=== PATIENT | male | born 1965 | race Caucasian/White ===

== ENCOUNTER → 2018-08-10 | Outpatient (CLI) | payer BC, SELFPAY ==
--- NOTE | 2018-08-10 08:01 | RAD_ITS ---
STUDY: X-RAY CHEST REASON FOR EXAM: Male, 53 years old. History of left lower lobe pneumonia x2 as a child. Smoker x40 years. Recently quit. New diagnosis of rheumatoid arthritis. TECHNIQUE: PA and lateral views of the chest. COMPARISON: None. FINDINGS: The lungs are clear and expanded. There is no pleural effusion. There is no pneumothorax. Normal size heart. There is no demonstrated mediastinal lymphadenopathy or mediastinal mass lesion. Normal visualized pulmonary arteries. There is atherosclerotic calcification of the aortic arch with tortuosity. There are very mild diffuse degenerative changes of the visualized thoracic spine. There is no evident acute osseous abnormality. There is no demonstrated abnormality of the visualized soft tissue structures of the upper abdomen. RAD/Chest PA and Lateral IMPRESSION: There is no radiographically evident acute cardiopulmonary disease. Electronically Signed: Johnson Velasquez MD at 8:38 EDT , Service support ,
[2018-08-15 07:12] LABS: QNTFERON TB Mitogen Value > 10.00 IU/mL (.); QNTFERON TB Nil Value 0.02 IU/mL (.); QNTFERON TB1+ Ag Value 0.03 IU/mL (.); QNTFERON TB2+ Ag Value 0.04 IU/mL (.)
[2018-08-15 11:01] LABS: QNTIFERON TB Positive Criteria Negative (Negative)
== END | disposition home or self-care (01) ==
LOC: MTLAB 07:49
PROVIDERS: Family Provider Internal Medicine; PCP Internal Medicine; Referring Provider Internal Medicine Rheumatology; Visit Provider Internal Medicine Rheumatology
DX: M06.09 Rheumatoid arthritis without rheumatoid factor, multiple sites (principal); Z79.899 Other long term (current) drug therapy; M72.2 Plantar fascial fibromatosis; K21.9 Gastro-esophageal reflux disease without esophagitis; M51.37 Other intervertebral disc degeneration, lumbosacral region; M47.897 Other spondylosis, lumbosacral region; J44.9 Chronic obstructive pulmonary disease, unspecified; I10 Essential (primary) hypertension
CPT/HCPCS: 36415; 71046; 86480

== ENCOUNTER → 2018-10-26 | Outpatient (CLI) | payer BC, SELFPAY ==
[2018-10-26 17:18] LABS: Absolute Lymphocyte Count 1.94 X10^3/uL (0.83-4.51); Absolute Neutrophil Count 7.8 X10^3/uL (2.0-7.7); Basophil# 0.08 X10^3/uL; Basophil% 0.7 % (0-1); Eosinophil# 0.07 X10^3/uL; Eosinophils% 0.6 % (0-5); Hematocrit 41.4 % (40-54); Hemoglobin 13.7 g/dL (13.0-16.5); Lymphocyte # 1.94 X10^3/ul (4.0); Lymphocyte % 17.4 % (19-41); Mean Corp Hgb Conc 33.1 g/dL (32-36); Mean Corpuscular Hgb 31.2 pg (27.0-32.0); Mean Corpuscular Volume 94.3 fL (80-94); Mean Platelet Vol. 9.4 fl (6.2-12.0); Monocyte# 1.17 X10^3/uL; Monocyte% 10.5 % (0-10); NRBC Flagged by Analyzer 0 % (0-5); Neutrophil # 7.81 X10^3/uL (2.7-7.7); Neutrophil % 70.2 % (47-70); Platelet Count 321 K/mm3 (150-450); RBC Distribution Width CV 13.8 % (11.6-14.6); RBC Distribution Width SD 47.9 fl (35.1-43.9); Red Blood Count 4.39 M/mm3 (4.6-6.2); White Blood Count 11.1 K/mm3 (4.4-11.0)
[2018-10-26 17:29] LABS: ALB/GLOB Ratio 1.2 RATIO (0.9-2.4); AST(SGOT) 24 U/L (15-37); Alanine Aminotransfer ALT/SGPT 28 U/L (16-61); Albumin, Serum 4.1 g/dL (3.2-5.0); Alkaline Phosphatase 77 U/L (45-117); Anion Gap 8 (5-15); BUN 12 mg/dL (7-18); BUN/Creat Ratio 13.9 RATIO (10-20); Calcium,Total 9.1 mg/dL (8.5-10.1); Chloride 103 mmol/L (98-107); Creatinine, Serum 0.86 mg/dL (0.70-1.30); EST Glomerular Filtration Rate 98 mL/min (>60); Est Glom Filt Rate - Afr Amer 118 mL/min (>60); Globulin 3.4 g/dL (2.2-4.2); Glucose 97 mg/dL (74-106); Potassium 4.1 mmol/L (3.5-5.1); Protein, Total 7.5 g/dL (6.4-8.2); Sodium Level 135 mmol/L (136-145)
== END | disposition home or self-care (01) ==
LOC: MTLAB 15:10
PROVIDERS: Family Provider Internal Medicine; PCP Internal Medicine; Referring Provider Internal Medicine Rheumatology; Visit Provider Internal Medicine Rheumatology
DX: M06.09 Rheumatoid arthritis without rheumatoid factor, multiple sites (principal); Z79.899 Other long term (current) drug therapy; M72.2 Plantar fascial fibromatosis; K21.9 Gastro-esophageal reflux disease without esophagitis; M51.37 Other intervertebral disc degeneration, lumbosacral region; M47.897 Other spondylosis, lumbosacral region; J44.9 Chronic obstructive pulmonary disease, unspecified; I10 Essential (primary) hypertension
CPT/HCPCS: 36415; 80053; 85025

== ENCOUNTER 2020-12-01 13:48 | Day surgery (SDC) | payer BC, SELFPAY ==
[2020-12-01 14:32] VITALS: BP 154/84; PULSE 76; RESP 16; TEMP 36.1; O2SAT 99; BMI 31.4
[2020-12-01] MEDS: Lactated Ringers 1,000 ML 100 ML IV (14:47)
[2020-12-01] MEDS: Pantoprazole Sodium 40 MG Tablet PO (15:00)
--- NOTE | 2020-12-01 15:35 | PCM.HP.BLA ---
History and Physical Date of Admission: 12/01/20 HISTORY AND PHYSICAL ? Marko Mckay 1965 ? ? REFERRING PHYSICIAN: Korin Cavanaugh, MARGARET ? CHIEF COMPLAINT: Established Patient ? HPI: The patient is a 55 year old male with a complaint of of?draining wound from his perineum. ?This is been going on for a long time. ?Usually it is in cycles every 3 to 4 weeks will get enlarged subsequently drained pus again started on some antibiotics to be quiet for some time and then recur. ?He has never had any surgeries in his perineal area and is not having any difficulty moving his bowels he has no constipation or diarrhea he has no difficulty with urination he has no difficulty with erection or ejaculation.. ? Since I last saw him the area in the perineum has started to drain again. It is significantly tender. He has been off his antibiotics for about a week. ? ? ? PAST MEDICAL HISTORY PAST MEDICAL HISTORY Diagnosis Date ? Acid reflux ? ? COPD (chronic obstructive pulmonary disease) (HCC) ? ? Essential hypertension ? ? Hemorrhoids ? ? High cholesterol ? ? ? PAST SURGICAL HISTORY PAST SURGICAL HISTORY Procedure Laterality Date ? BACK SURGERY HX ? ? ? COLONOSCOPY GEN ANES ? ? ? EGD ? CURRENT MEDICATIONS Current Outpatient Medications Medication Sig ? traMADol (ULTRAM) 50 mg tablet Take 50 mg by mouth three times daily as needed. ? sucralfate (CARAFATE) 1 gram tablet Take 1 g by mouth. ? lisinopril (ZESTRIL,PRINIVIL) 30 mg tablet Take by mouth q 24 HR. ? cyclobenzaprine HCl (FLEXERIL ORAL) Take by mouth. ? No current facility-administered medications for this visit. ? ? ALLERGIES: Penicillins ? PERSONAL HISTORY: SOCIAL HISTORY Social History ? Tobacco Use ? Smoking status: Former Smoker ? Smokeless tobacco: Never Used Substance Use Topics ? Alcohol use: Not on file ? Drug use: Not on file ? FAMILY HISTORY: FAMILY HISTORY FAMILY HISTORY Problem Relation Age of Onset ? Hypertension Mother ? ? Cancer Mother ? ? Hypertension Father ? ? Kidney failure Father ? ? ? REVIEW OF SYSTEMS: ?General:???The patient denies fatigue, denies weight loss, denies weight gain, denies feeling hot, and denies feelings of cold. ?Eyes: ?The patient denies glaucoma, denies eye injury/surgery, does not wear glasses or contacts. ?Ear/Nose/Throat: ?The patient denies allergies, NOTES hayfever, denies ear infections, and denies bloody noses. ?Cardiovascular: ?The patient denies chest pain, denies heart disease, NOTES high blood pressure,denies cardiac stent, denies prior heart attack, denies irregular heart beat, NOTES high cholesterol, ?denies poor circulation, denies heart failure, other cardiac issues, NOTES claudication, denies cold feet, denies peripheral arterial stent. ?Respiratory: ?The patient denies tuberculosis, denies pneumonia, denies frequent cough, denies pulmonary embolism, NOTES shortness of breath, and denies coughing up blood. ?Gastrointestinal: ?The patient denies difficulty swallowing, NOTES acid reflux, NOTES ulcers, denies vomiting, denies jaundice/hepatitis, denies gallbladder problems, denies black or tarry stools, NOTES hemorrhoids, denies bleeding from rectum, denies diverticulitis, denies constipation, denies diarrhea, denies loss of stool control, and denies hernias. ?Kidney/Bladder: ?The patient denies kidney stones, denies urine infections, and denies bloody urine. ?Skin: ?The patient denies a history of skin cancer, denies bleeding/changing moles, and denies a history of skin rash. ?Neurologic: ?The patient denies a history of epilepsy/convulsions, denies headaches, NOTES head/spinal injuries, and denies stroke/TIA. ?Psychiatric: ?The patient denies psychiatric medications, NOTES depression, and denies voices, denies substance abuse. ?Endocrine: ?The patient denies thyroid disorders, denies diabetes, and denies hormonal problems. ?Hematologic: ?The patient denies a history of bruising, denies bleeding, and denies anemia, denies blood clots. ?Infections: ?The patient denies a history of measles and mumps, denies rheumatic fever, and denies sexually transmitted diseases. ?Musculoskeletal: ?The patient NOTES back pain/injury, denies back problems, denies sciatica, denies knee/foot trouble, denies arthritis, or denies gout. ? ? When was patient's last Mammogram screening? N/A ? ?Last Colonoscopy: 2020 ? PHYSICAL EXAMINATION: ? General: The patient is 55 year old male, well nourished, well hydrated in no acute distress. The patient is oriented to time, place, and person. ? VITALS: Blood pressure 160/70, pulse 83, temperature 36.7 ?C (98 ?F), temperature source Temporal Artery, weight 111.6 kg (246 lb), SpO2 98 %. ? HEENT: Normal cephalic, ataumatic, pupils are equally round, sclera are anicteric, mucous membranes are moist, oropharynx is clear. Neck has no masses, asymmetry or lymphadenopathy. Thyroid is unremarkable. ? Respiratory: Clear to auscultation and percussion. Normal respiratory excursion and pattern. ? Cardiac: Examination is regular rate and rhythm. ? Abdominal exam: Soft, nontender, with no palpable masses. No hepatosplenomegaly. No palpable hernias. ? Rectal exam:?Perianal area is entirely normal. ?Between the space between the scrotum and the anus there is some firm tissue but there is no draining sinus there is no undrained abscess there is no signs of cellulitis. ?But it does have the appearance of chronically inflamed sweat glands. ?Consistent with hidradenitis. ? Extremities: no clubbing, cyanosis or edema. No adenopathy. ? Other: ? ? LABORATORY VALUES: As Noted ? RADIOLOGIC STUDIES: As Noted ? Assessment IMPRESSION: Hidradenitis suppurativa (primary encounter diagnosis) ? PLAN: My plan is to perform an I&D of this area.The planned surgical procedure was discussed extensively with the patient. The risks, benefits, anticipated outcomes and possible complications were mentioned. My staff has also explained the procedure in understandable terms and the patient was given the option to take printed material concerning the planned procedure. The patient had the opportunity to ask questions concerning the planned procedure. The patient freely consents to the planned procedure. ? Diagnoses: (L73.2) Hidradenitis suppurativa (primary encounter diagnosis) ? ? A letter was sent to Dr. Roque primary care provider on file. indicating the above finding for this patient. Return to Clinic: The patient is instructed to follow-up with me 1 week post operatively. ? COVID (Procedure Consent) Procedure Criteria ? Procedure Criteria: Yes Elective The surgeon/proceduralist and patient have discussed in detail the risk of exposure to and/or potential harm posed by the COVID-19 virus with having a surgery/procedure at this time versus the risk of? delaying the surgery/procedure. It is not possible to know either the risk of delaying the surgery or procedure or chance of getting an infection with perfect accuracy, but a joint decision was made between the patient and the surgeon/proceduralist ?to proceed at this time with the scheduled surgery/procedure as indicated on the consent form. ? ? ? Johann Ceron III, MD I have re-examined the patient. There are no clinical changes since date of exam.
[2020-12-01] MEDS: BUPIVACAINE LIPOSOME/PF 20 ML VIAL OPERA.SITE (16:27)
--- NOTE | 2020-12-01 16:35 | OP.PCM_ITS ---
Problems Associated Problem List Diagnoses (1) Hidradenitis suppurativa: Report of Operation Date of Procedure: 12/01/20 Pre-Operative Diagnosis: Hidradenitis suppurativa Post-Operative Diagnosis: Same Surgery/Procedure Performed:: Incision and debridement of hidradenitis suppurativa Surgeon: Johann Ceron lock corner machine operator: None Type of Anesthesia: General Anesthesiologist: Philippe Verduzco Specimen's removed: Hidradenitis suppurativa of perineum Estimated Blood Loss (mL): < 25 cc Description of Procedure: Patient was brought into the operating room. Placed in the supine position. Under excellent general anesthetic his legs were placed up in stirrups and his perineal area was sterilely prepped and draped in usual fashion. I was expecting only to see one area that was abnormal this was the area closest to his scrotum however he had another area inferior to this closer to the anus that actually had punctated pus the sinuses coming out and it felt firm. I started with this area injected Exparel and made an elliptical incision and removed it all the tissue underneath it look good and viable and I thought the best thing to do here was inject more Exparel and then I closed it. I did not want a leave him with 2 wounds in this area. We closed this with subcu of 3-0 Vicryl then 3-0 chromic on the skin which I left on the outside so that it would fall out. The area just underneath the scrotum was injected with Exparel I made an incision I used a curette and curetted out a significant amount of necrotic fatty tissue I injected more Exparel use electrocautery for good admit stasis and I packed this with a Betadine soaked Curlex. He will be doing daily soaks and washing's to the area. We will have to keep a close eye on this I am not entirely convinced this little operation is going to be enough I am hoping that once this heals up we will have to deal with it anymore but he does understand that this could be a chronic recurring thing and he may need to see plastic surgery to have a much wider excision. Admit VTE Documentation VTE Present on Admission: No VTE Mechan Device Prophylaxis: SCD's VTE Pharm Prophylaxis ordered?: No Reason prophylaxis not ordered:: Treatment Not Indicated
[2020-12-01 16:48] VITALS: BP 109/49; BP 154/84; PULSE 77; RESP 18; TEMP 36.3; O2SAT 97
--- NOTE | 2020-12-01 16:55 | HID_PTH ---
PATIENT: MARY BLACKWOOD [place] [facility] [place][id number] AGE/SX: 55/M ROOM: RE12/01/[address]: Dr. Johann Ceron MD : 1965 BED: DIS: 12/01/2020 SPEC #: [id number] RECD: 12/02/20 07:52 STATUS: MATILDE REGoldy #: [id number] OMAIRA: 12/01/20 16:[address]: Johann Ceron DEPT: SURGICAL PATHOLOGY RECD BY: Margarita Honeycutt ENTERED: 12/02/20 09:32 SP TYPE: Hidradenit REGINA DR: Korin Cavanaugh, IGNITION SPECIALIST-C Tissues: Perineum, NOS Procedures: Surgery Specimen Level III HEADER OPERATION: Incision, drainage perineum abscess PRE-OP DIAGNOSIS: Hidradenitis suppurativa TISSUE SUBMITTED: Debrided tissue of perineum MICROSCOPIC DIAGNOSIS Debrided tissue of perineum: A piece of skin with underlying tissue with moderate acute and chronic inflammation, clinically hidradenitis suppurativa. RAYNA:julien 12/03/2020 MICROSCOPIC DESCRIPTION Slides are reviewed. GROSS DESCRIPTION Received in fixative is one container labeled with the patient's name and designated debrided tissue of perineum. The specimen consists of a piece of skin with underlying tissue. The skin piece measures 1.7 x 0.5 cm. The underlying tissue measures 1.5 x 1.5 x 1.2 cm. The specimen is serially sectioned and submitted entirely in two cassettes. / RAYNA:julien 12/02/20 TC:2 CPT: 62138
[2020-12-01 17:00] VITALS: BP 109/52; BP 154/84; PULSE 72; RESP 18; O2SAT 96
[2020-12-01 17:12] VITALS: BP 110/62; BP 154/84; PULSE 69; RESP 18; TEMP 36.1; O2SAT 95
--- NOTE | 2020-12-01 17:16 | EX.PCM.DISCH ---
Discharge Instructions Procedure General Surgery Diet Discharge Diet: Light diet - advance as tolerated (If you have questions about your diet instructions, please talk to your doctor.) Activity Discharge Activity: May Not Drive (for 1 week or while taking narcotic pain medicine.) May shower in (days): 1 Lifting Restrictions: 10 pounds Dressing / Incision Call your doctor if your incision/area has: Continuous Slow Oozing, Sudden Increased Bleeding, Increased Pain/ Swelling, Increased Redness and Foul Smelling Discharge Call your doctor if you observe: Fever of 101 or Higher Suture Line Care: Avoid Pulling/Pushing and Avoid Pinching/Bending Additional Dressing/Incision Instructions:: Change or remove dressing in 4 days. Leave steri-strips in place for 1 week. Follow Up Care Please Follow Up With: Vijaya Xavier PA-C When: Call office to schedule an appointment to be seen in about 10 days. Test Results: Test results from this visit will be discussed in further detail at your follow-up appointment, if applicable. Discharge Plan Admission Attending Provider: Johann Ceron Primary Care Provider: Korin Cavanaugh Discharge Orders/Prescriptions Prescriptions: No Action atorvastatin 20 mg tablet 20 mg PO QHS RF: 0 ipratropium-albuterol 0.5 mg-3 mg(2.5 mg base)/3 mL solution for nebulization 3 ml inhalation DAILY PRN PRN (Reason: breathing) RF: 0 sucralfate 1 gram tablet 1 g PO ACHS RF: 0 omeprazole 40 mg capsule,delayed release(DR/EC) 40 mg PO DAILY RF: 0 leflunomide 20 mg tablet 20 mg PO DAILY RF: 0 tramadol 50 mg tablet 50 mg PO TID RF: 0 amitriptyline 10 mg tablet 10 mg PO QHS RF: 0 lisinopril 30 mg tablet 30 mg PO DAILY RF: 0 montelukast 10 mg tablet 10 mg PO DAILY PRN PRN (Reason: allergies) RF: 0 nystatin 100,000 unit/gram powder 1 applic TOPICAL DAILY PRN PRN (Reason: Rash) RF: 0 albuterol sulfate 90 mcg/actuation HFA aerosol inhaler 2 puff INHALATION DAILY PRN PRN (Reason: breathing) RF: 0 gabapentin 300 mg Tablet 300 mg PO BID RF: 0 Trelegy Ellipta 100-62.5-25 mcg blister with device 1 inh INHALATION DAILY RF: 0
[2020-12-01 18:02] VITALS: BP 154/84
== END 2020-12-01 18:09 | disposition home or self-care (01) ==
LOC: SDC 13:51 → AC 13:52
PROVIDERS: PCP Nurse Practitioner Family; Referring Provider Surgery; Visit Provider Surgery
PROC: (CPT 11470; principal; 2020-12-01 16:45)
DX: L73.2 Hidradenitis suppurativa (principal); I10 Essential (primary) hypertension; J44.9 Chronic obstructive pulmonary disease, unspecified; E78.00 Pure hypercholesterolemia, unspecified; K21.9 Gastro-esophageal reflux disease without esophagitis; M06.9 Rheumatoid arthritis, unspecified; G43.909 Migraine, unspecified, not intractable, without status migrainosus; Z87.19 Personal history of other diseases of the digestive system; Z79.899 Other long term (current) drug therapy; Z87.891 Personal history of nicotine dependence
CPT/HCPCS: 00400; 11470; 88304; 88305; J7120

== ENCOUNTER → 2023-03-13 | Outpatient (CLI) | payer BC, SELFPAY ==
[2023-03-13 18:06] LABS: CRP 8.95 mg/L (0.0-3.0)
[2023-03-15 15:08] LABS: Endomysial Antibody IgA Negative (Negative); Immunoglobulin A 149 mg/dL (90-386); t-Transglutaminase IgA <2 U/mL (0-3)
== END | disposition home or self-care (01) ==
PROVIDERS: PCP Nurse Practitioner Family; Referring Provider Internal Medicine Gastroenterology; Visit Provider Internal Medicine Gastroenterology
DX: R10.9 Unspecified abdominal pain (principal)
CPT/HCPCS: 36415; 82784; 83516; 86140; 86255